=== PATIENT | male | born 1945 | race Caucasian/White ===

== ENCOUNTER 2018-04-05 17:59 | Inpatient (IN) ==
[2018-04-05 19:13] LABS: Basophils % 0.5 % (0.0-0.8); Eosinophils % 11.8 % (0.00-10.9); Hematocrit 40.2 VOL% (42.0-52.0); Immature Granulocytes % 0.3 %; Immature Granulocytes Absolute 0.03 #; Lymphocytes # 1.8 10*3/uL (1.4-4.0); Lymphocytes % 20.7 % (21.2-54.2); Mean Corpuscular HGB Conc 32.3 GM/DL (32-36); Mean Corpuscular Hemoglobin 33 PG (27-34); Mean Corpuscular Volume 103.3 FL (87-102); Mean Platelet Volume 11.1 FL (9.6-12.0); Monocytes % 11.7 % (1.7-12.7); Neutrophils # 4.9 10*3/uL (1.4-7.4); Platelet Count 354 T/CUMM (130-400); Red Blood Count 3.89 MC/CUMM (3.8-5.5); Red Cell Distribution Width 15.1 % (9.3-17.3); White Blood Count 8.8 T/CUMM (4-12)
[2018-04-05 19:34] LABS: Alanine Aminotransferase 16 U/L (16-61); Albumin 3.6 G/DL (3.4-5.0); Alkaline Phosphatase 66 U/L (45-117); Aspartate Amino Transferase 23 U/L (0-37); Bilirubin,Total < 0.39 MG/DL (0.2-1.0); Blood Urea Nitrogen 32 MG/DL (7-18); Glucose 86 MG/DL (74-106); Osmolality,Calculated 278.8 MOS/KG (273-304); Potassium 5.1 MMOL/L (3.5-5.1); Sodium 137 MMOL/L (136-145); Total Protein 7.4 G/DL (6.4-8.3)
[2018-04-05] MEDS ORDERED: ONDANSETRON 4 MG/2 ML VIAL IV STA (20:05)
[2018-04-05] MEDS ORDERED: MORPHINE 4 MG/1 ML VIAL IV STA (20:05)
[2018-04-05] MEDS ORDERED: hydrALAZINE 20 MG/1 ML VIAL IV STA (20:22)
[2018-04-05 20:25] LABS: Eosinophils 16 % (0-10); Lymphocytes 18 % (20-55); Segmented Neutrophils 58 % (50-85); Total Cells Counted 100
[2018-04-05 20:26] LABS: Anisocytosis Slight; Macrocytosis Slight; Spherocytes Few; Tear Drop Cells Slight
[2018-04-05 20:27] LABS: Stomatocytes Few
[2018-04-05 20:28] LABS: Platelet Estimate Normal
[2018-04-05] MEDS ORDERED: MORPHINE 4 MG/1 ML VIAL IV PRN (21:45)
[2018-04-05] MEDS ORDERED: ENOXAPARIN 40 MG/0.4 ML SYRINGE SUBCUT SCH (22:00)
[2018-04-05] MEDS: SODIUM CHLORIDE 0.9% 1,000 ML IV SCH (23:17)
[2018-04-05] MEDS: NIACIN ER 500 MG TABLET PO SCH (23:22)
[2018-04-05] MEDS: ROSUVASTATIN 20 MG TABLET PO SCH (23:23)
[2018-04-05] MEDS: PANTOPRAZOLE 40 MG TABLET PO SCH (23:23)
[2018-04-06 06:46] LABS: Basophils # 0.1 10*3/uL (0.0-0.2); Basophils % 0.6 % (0.0-0.8); Eosinophils % 12.3 % (0.00-10.9); Hemoglobin 11.3 GM/DL (14.0-18.0); Immature Granulocytes % 0.2 %; Immature Granulocytes Absolute 0.02 #; Lymphocytes # 2.1 10*3/uL (1.4-4.0); Lymphocytes % 25.1 % (21.2-54.2); Mean Corpuscular HGB Conc 31.4 GM/DL (32-36); Mean Corpuscular Hemoglobin 33 PG (27-34); Mean Corpuscular Volume 105.3 FL (87-102); Mean Platelet Volume 10.4 FL (9.6-12.0); Monocytes # 0.9 10*3/uL (0.11-0.8); Monocytes % 10.1 % (1.7-12.7); Neutrophils # 4.4 10*3/uL (1.4-7.4); Neutrophils % 51.7 % (38.7-73.9); Platelet Count 309 T/CUMM (130-400); Red Blood Count 3.42 MC/CUMM (3.8-5.5); Red Cell Distribution Width 15.4 % (9.3-17.3); White Blood Count 8.4 T/CUMM (4-12)
[2018-04-06 07:17] LABS: Alanine Aminotransferase 13 U/L (16-61); Alkaline Phosphatase 51 U/L (45-117); Aspartate Amino Transferase 16 U/L (0-37); Bilirubin,Total < 0.39 MG/DL (0.2-1.0); Blood Urea Nitrogen 30 MG/DL (7-18); Calcium 8.7 MG/DL (8.5-10.1); Cholesterol 114 MG/DL (50-200); Glucose 99 MG/DL (74-106); HDL Cholesterol < 10 MG/DL (40-60); Osmolality,Calculated 282.5 MOS/KG (273-304); Potassium 5.6 MMOL/L (3.5-5.1); Sodium 139 MMOL/L (136-145); Total Protein 6.7 G/DL (6.4-8.3); Triglycerides 241 MG/DL (2-150); VLDL CHOLESTEROL 48.2 MG/DL
[2018-04-06] MEDS: GEMFIBROZIL 600 MG TABLET PO SCH ×2 (07:55→10:12)
[2018-04-06] MEDS: SODIUM CHLORIDE 0.9% 1,000 ML IV SCH ×2 (09:07→18:40)
[2018-04-06 10:01] LABS: Eosinophils 12 % (0-10); Lymphocytes 21 % (20-55); Platelet Estimate Normal; Polychromasia Slight; Segmented Neutrophils 60 % (50-85); Total Cells Counted 100
[2018-04-06] MEDS: ISOSORBIDE MONONITRATE 30 MG TABLET PO SCH (10:12)
[2018-04-06] MEDS: ASPIRIN 325 MG TABLET PO SCH (10:12)
[2018-04-06] MEDS: METOPROLOL TARTRATE 50 MG TABLET PO SCH ×2 (10:12→21:08)
[2018-04-06] MEDS: FENOFIBRATE 145 MG TABLET PO SCH (10:12)
[2018-04-06] MEDS: amLODIPine 10 MG TABLET PO SCH (10:12)
[2018-04-06] MEDS: PANTOPRAZOLE 40 MG TABLET PO SCH ×2 (10:55→21:08)
[2018-04-06] MEDS: CYANOCOBALAMIN 1000 MCG/1 ML VIAL SUBCUT SCH (16:00)
[2018-04-06] MEDS: NIACIN ER 500 MG TABLET PO SCH (21:07)
[2018-04-06] MEDS: ROSUVASTATIN 20 MG TABLET PO SCH (21:08)
[2018-04-06] MEDS: ENOXAPARIN 30 MG/0.3 ML SYRINGE SUBCUT SCH (22:24)
[2018-04-07] MEDS: SODIUM CHLORIDE 0.9% 1,000 ML IV SCH ×2 (05:19→21:57)
[2018-04-07] MEDS: ISOSORBIDE MONONITRATE 30 MG TABLET PO SCH (09:42)
[2018-04-07] MEDS: PANTOPRAZOLE 40 MG TABLET PO SCH ×2 (09:42→21:53)
[2018-04-07] MEDS: METOPROLOL TARTRATE 50 MG TABLET PO SCH ×2 (09:42→21:53)
[2018-04-07] MEDS: ASPIRIN 325 MG TABLET PO SCH (09:42)
[2018-04-07] MEDS: FENOFIBRATE 145 MG TABLET PO SCH (09:42)
[2018-04-07] MEDS: amLODIPine 10 MG TABLET PO SCH (09:42)
[2018-04-07] MEDS: CYANOCOBALAMIN 1000 MCG/1 ML VIAL SUBCUT SCH (09:43)
[2018-04-07 09:45] LABS: Basophils # 0.1 10*3/uL (0.0-0.2); Basophils % 0.6 % (0.0-0.8); Eosinophils # 1.2 10*3/uL (0.0-0.87); Eosinophils % 14.3 % (0.00-10.9); Hematocrit 39.1 VOL% (42.0-52.0); Hemoglobin 12.3 GM/DL (14.0-18.0); Immature Granulocytes % 0.2 %; Immature Granulocytes Absolute 0.02 #; Lymphocytes # 2.1 10*3/uL (1.4-4.0); Lymphocytes % 26.3 % (21.2-54.2); Mean Corpuscular HGB Conc 31.5 GM/DL (32-36); Mean Corpuscular Hemoglobin 33 PG (27-34); Mean Platelet Volume 10.7 FL (9.6-12.0); Monocytes # 0.8 10*3/uL (0.11-0.8); Monocytes % 9.3 % (1.7-12.7); Neutrophils % 49.3 % (38.7-73.9); Platelet Count 342 T/CUMM (130-400); Red Blood Count 3.69 MC/CUMM (3.8-5.5); Red Cell Distribution Width 15.3 % (9.3-17.3); White Blood Count 8.1 T/CUMM (4-12)
[2018-04-07 10:21] LABS: Osmolality,Calculated 280.7 MOS/KG (273-304); Potassium 4.6 MMOL/L (3.5-5.1)
[2018-04-07 13:33] LABS: Eosinophils 8 % (0-10); Lymphocytes 24 % (20-55); Platelet Estimate Normal; Polychromasia Slight; Segmented Neutrophils 65 % (50-85); Total Cells Counted 100
[2018-04-07] MEDS ORDERED: BISACODYL 5 MG TABLET PO ONE (18:00)
[2018-04-07] MEDS ORDERED: MAGNESIUM CITRATE 300 ML BOTTLE PO ONE (18:00)
[2018-04-07] MEDS: ROSUVASTATIN 20 MG TABLET PO SCH (21:53)
[2018-04-07] MEDS: NIACIN ER 500 MG TABLET PO SCH (21:53)
[2018-04-07] MEDS: ENOXAPARIN 30 MG/0.3 ML SYRINGE SUBCUT SCH ×2 (21:53→23:15)
[2018-04-08] MEDS: FENOFIBRATE 145 MG TABLET PO SCH (08:52)
[2018-04-08] MEDS: CYANOCOBALAMIN 1000 MCG/1 ML VIAL SUBCUT SCH (08:52)
[2018-04-08] MEDS: ASPIRIN 325 MG TABLET PO SCH (08:52)
[2018-04-08] MEDS: METOPROLOL TARTRATE 50 MG TABLET PO SCH ×2 (08:52→22:33)
[2018-04-08] MEDS: ISOSORBIDE MONONITRATE 30 MG TABLET PO SCH (08:52)
[2018-04-08] MEDS: PANTOPRAZOLE 40 MG TABLET PO SCH ×2 (08:53→22:33)
[2018-04-08] MEDS: amLODIPine 10 MG TABLET PO SCH (08:53)
[2018-04-08 09:00] LABS: Calcium 8.8 MG/DL (8.5-10.1); Osmolality,Calculated 284.3 MOS/KG (273-304); Potassium 4.8 MMOL/L (3.5-5.1)
[2018-04-08] MEDS: SODIUM CHLORIDE 0.9% 1,000 ML IV SCH ×2 (17:30→18:26)
[2018-04-08] MEDS: ROSUVASTATIN 20 MG TABLET PO SCH (22:32)
[2018-04-08] MEDS: NIACIN ER 500 MG TABLET PO SCH (22:32)
[2018-04-08] MEDS: ENOXAPARIN 30 MG/0.3 ML SYRINGE SUBCUT SCH (22:33)
[2018-04-09] MEDS: SODIUM CHLORIDE 0.9% 1,000 ML IV SCH ×4 (02:50→14:58)
[2018-04-09] MEDS: amLODIPine 10 MG TABLET PO SCH (09:22)
[2018-04-09] MEDS: PANTOPRAZOLE 40 MG TABLET PO SCH ×2 (09:22→20:52)
[2018-04-09] MEDS: METOPROLOL TARTRATE 50 MG TABLET PO SCH ×2 (09:22→20:52)
[2018-04-09] MEDS: methylPREDNISolone SOD SUC 40 MG/1 ML VIAL IV SCH (15:21)
[2018-04-09] MEDS: CYANOCOBALAMIN 1000 MCG/1 ML VIAL SUBCUT SCH (15:24)
[2018-04-09] MEDS: FENOFIBRATE 145 MG TABLET PO SCH (15:26)
[2018-04-09] MEDS: ISOSORBIDE MONONITRATE 30 MG TABLET PO SCH (15:26)
[2018-04-09] MEDS: ASPIRIN 325 MG TABLET PO SCH (15:27)
[2018-04-09] MEDS: NIACIN ER 500 MG TABLET PO SCH (20:52)
[2018-04-09] MEDS: ROSUVASTATIN 20 MG TABLET PO SCH (20:53)
[2018-04-09] MEDS: ENOXAPARIN 30 MG/0.3 ML SYRINGE SUBCUT SCH (22:40)
[2018-04-10] MEDS: SODIUM CHLORIDE 0.9% 1,000 ML IV SCH ×3 (06:01→21:26)
[2018-04-10 06:08] LABS: Basophils % 0.2 % (0.0-0.8); Eosinophils % 0.1 % (0.00-10.9); Hematocrit 30.7 VOL% (42.0-52.0); Hemoglobin 9.7 GM/DL (14.0-18.0); Immature Granulocytes % 0.7 %; Immature Granulocytes Absolute 0.06 #; Lymphocytes # 1.1 10*3/uL (1.4-4.0); Lymphocytes % 13.3 % (21.2-54.2); Mean Corpuscular HGB Conc 31.6 GM/DL (32-36); Mean Corpuscular Hemoglobin 34 PG (27-34); Mean Corpuscular Volume 106.6 FL (87-102); Mean Platelet Volume 11.3 FL (9.6-12.0); Monocytes # 0.5 10*3/uL (0.11-0.8); Monocytes % 6.3 % (1.7-12.7); Neutrophils # 6.4 10*3/uL (1.4-7.4); Neutrophils % 79.4 % (38.7-73.9); Platelet Count 288 T/CUMM (130-400); Red Blood Count 2.88 MC/CUMM (3.8-5.5); Red Cell Distribution Width 14.8 % (9.3-17.3)
[2018-04-10 06:18] LABS: Calcium 8.2 MG/DL (8.5-10.1); Osmolality,Calculated 285.4 MOS/KG (273-304)
[2018-04-10] MEDS: ASPIRIN 325 MG TABLET PO SCH (08:24)
[2018-04-10] MEDS: amLODIPine 10 MG TABLET PO SCH (08:24)
[2018-04-10] MEDS: METOPROLOL TARTRATE 50 MG TABLET PO SCH ×2 (08:24→21:27)
[2018-04-10] MEDS: PANTOPRAZOLE 40 MG TABLET PO SCH ×2 (08:24→21:28)
[2018-04-10] MEDS: ISOSORBIDE MONONITRATE 30 MG TABLET PO SCH (08:25)
[2018-04-10] MEDS: CYANOCOBALAMIN 1000 MCG/1 ML VIAL SUBCUT SCH (08:25)
[2018-04-10] MEDS: FENOFIBRATE 145 MG TABLET PO SCH (08:25)
[2018-04-10] MEDS: methylPREDNISolone SOD SUC 40 MG/1 ML VIAL IV SCH (13:28)
[2018-04-10] MEDS ORDERED: DIAZEPAM 5 MG TABLET PO ONE (15:55)
[2018-04-10] MEDS ORDERED: PANTOPRAZOLE 40 MG TABLET PO ONE (15:56)
[2018-04-10] MEDS: ROSUVASTATIN 20 MG TABLET PO SCH (21:27)
[2018-04-10] MEDS: NIACIN ER 500 MG TABLET PO SCH (21:27)
[2018-04-11] MEDS: ENOXAPARIN 30 MG/0.3 ML SYRINGE SUBCUT SCH (01:54)
[2018-04-11] MEDS ORDERED: PHENYLEPHRINE DRIP 20 MG/250 ML PREMIX IV ONE (07:23)
[2018-04-11] MEDS ORDERED: NITROGLYCERIN DRIP 50 MG/250 ML BOTTLE IV ONE (07:23)
[2018-04-11] MEDS ORDERED: SODIUM CHLORIDE 0.9% 1,000 ML IV ONE (07:23)
[2018-04-11] MEDS ORDERED: HEPARIN/NACL 0.9% 2 UNITS/ML 500 ML IV ONE (07:23)
[2018-04-11] MEDS ORDERED: DIAZEPAM 5 MG TABLET PO ONE (08:00)
[2018-04-11] MEDS ORDERED: HEPARIN 5,000 UNIT/1 ML VIAL ONE (08:03)
[2018-04-11] MEDS: ASPIRIN 325 MG TABLET PO SCH (08:04)
[2018-04-11] MEDS ORDERED: LIDOCAINE 1% 20 ML VIAL ONE (08:04)
[2018-04-11] MEDS: METOPROLOL TARTRATE 50 MG TABLET PO SCH ×2 (08:05→20:31)
[2018-04-11] MEDS: ISOSORBIDE MONONITRATE 30 MG TABLET PO SCH (08:05)
[2018-04-11] MEDS: amLODIPine 10 MG TABLET PO SCH (08:05)
[2018-04-11] MEDS: CYANOCOBALAMIN 1000 MCG/1 ML VIAL SUBCUT SCH (08:06)
[2018-04-11] MEDS: PANTOPRAZOLE 40 MG TABLET PO SCH ×2 (08:06→20:31)
[2018-04-11] MEDS: FENOFIBRATE 145 MG TABLET PO SCH (08:06)
[2018-04-11] MEDS ORDERED: ceFAZolin 1,000 MG VIAL ONE (09:21)
[2018-04-11] MEDS ORDERED: ceFAZolin 1,000 MG in SYRINGE 1 EACH IV ONE (09:50)
[2018-04-11] MEDS ORDERED: PROMETHAZINE 25 MG/1 ML VIAL IM PRN (10:31)
[2018-04-11] MEDS ORDERED: HYDROmorphone 2 MG/1 ML VIAL IV PRN ×2 (10:31)
[2018-04-11] MEDS ORDERED: DEXTROSE 50% 25 GM/50 ML VIAL IV PRN (10:31)
[2018-04-11] MEDS ORDERED: NALOXONE 0.4 MG/ML VIAL IV PRN (10:31)
[2018-04-11] MEDS ORDERED: GLUCAGON 1 MG VIAL IM PRN (10:31)
[2018-04-11] MEDS ORDERED: oxyCODONE/ACETAMINOPHEN 5-325 MG TABLET PO PRN ×2 (10:31)
[2018-04-11] MEDS ORDERED: ONDANSETRON 4 MG/2 ML VIAL IV PRN (10:31)
[2018-04-11] MEDS ORDERED: ONDANSETRON 4 MG/2 ML VIAL ONE ×2 (10:43→10:57)
[2018-04-11] MEDS ORDERED: PROPOFOL 200 MG/20 ML VIAL IV ONE (10:56)
[2018-04-11] MEDS ORDERED: LABETALOL 20 MG/4 ML SYRINGE IV ONE (10:57)
[2018-04-11] MEDS ORDERED: PROTAMINE SULFATE 50 MG/5 ML VIAL IV ONE (10:57)
[2018-04-11] MEDS ORDERED: GLYCOPYRROLATE 0.4 MG/2 ML VIAL ONE (10:57)
[2018-04-11] MEDS ORDERED: ROCURONIUM 100 MG/10 ML VIAL IV ONE (10:57)
[2018-04-11] MEDS ORDERED: fentaNYL 100 MCG/2 ML VIAL ONE (10:57)
[2018-04-11] MEDS ORDERED: hydrALAZINE 20 MG/1 ML VIAL ONE (10:57)
[2018-04-11] MEDS ORDERED: NEOSTIGMINE 10 MG/10 ML VIAL ONE (10:57)
[2018-04-11] MEDS ORDERED: HEPARIN 10,000 UNIT/10 ML VIAL ONE (10:58)
[2018-04-11] MEDS ORDERED: NITROPRUSSIDE 100 MG in DEXTROSE 5% 250 ML IV SCH (11:00)
[2018-04-11] MEDS: HYDROmorphone 2 MG/1 ML VIAL IV PRN ×2 (11:10→11:22)
[2018-04-11] MEDS: LACTATED RINGERS 1,000 ML IV SCH ×2 (11:10→20:31)
[2018-04-11] MEDS: SODIUM CHLORIDE 0.9% 1,000 ML IV SCH ×3 (12:00→16:57)
[2018-04-11] MEDS: ASPIRIN EC 81 MG TABLET PO SCH (12:20)
[2018-04-11] MEDS: methylPREDNISolone SOD SUC 40 MG/1 ML VIAL IV SCH (12:47)
[2018-04-11] MEDS: PHENYLEPHRINE DRIP 40 MG/250 ML PREMIX IV SCH (13:25)
[2018-04-11] MEDS: NIACIN ER 500 MG TABLET PO SCH (20:30)
[2018-04-11] MEDS: ROSUVASTATIN 20 MG TABLET PO SCH (20:30)
[2018-04-12] MEDS: LACTATED RINGERS 1,000 ML IV SCH (06:34)
[2018-04-12] MEDS ORDERED: DEXTROSE 50% 25 GM/50 ML SYRINGE IV PRN (08:36)
[2018-04-12] MEDS ORDERED: GLUCAGON 1 MG VIAL IM PRN (08:36)
[2018-04-12] MEDS ORDERED: CLOPIDOGREL 75 MG TABLET PO SCH (09:00)
[2018-04-12] MEDS: METOPROLOL TARTRATE 50 MG TABLET PO SCH (09:04)
[2018-04-12] MEDS: amLODIPine 10 MG TABLET PO SCH (09:04)
[2018-04-12] MEDS: ASPIRIN EC 81 MG TABLET PO SCH (09:04)
[2018-04-12] MEDS: FENOFIBRATE 145 MG TABLET PO SCH (09:04)
[2018-04-12] MEDS: PANTOPRAZOLE 40 MG TABLET PO SCH (09:04)
[2018-04-12] MEDS: ISOSORBIDE MONONITRATE 30 MG TABLET PO SCH (09:04)
[2018-04-12] MEDS: PHENYLEPHRINE DRIP 40 MG/250 ML PREMIX IV SCH (10:50)
[2018-04-12 11:24] VITALS: BP 129/64
[2018-04-12] MEDS: methylPREDNISolone SOD SUC 40 MG/1 ML VIAL IV SCH (12:25)
== END 2018-04-12 14:55 | disposition home or self-care (01) | DRG 983 ==
LOC: N.EDINP 17:59 → N.ED 17:59 → N.3E 22:28 → SUATTDRO 04-08 16:29 → N.ICU 04-11 11:38
PROVIDERS: ADMIT Internal Medicine; ATTEND Internal Medicine

== ENCOUNTER 2018-05-20 11:46 | Observation (INO) ==
[2018-05-20 14:54] LABS: Basophils % 0.4 % (0.0-0.8); Eosinophils # 0.5 10*3/uL (0.0-0.87); Eosinophils % 6.7 % (0.00-10.9); Hematocrit 42.8 VOL% (42.0-52.0); Hemoglobin 13.4 GM/DL (14.0-18.0); Immature Granulocytes % 0.4 %; Immature Granulocytes Absolute 0.03 #; Lymphocytes # 1.2 10*3/uL (1.4-4.0); Lymphocytes % 16.1 % (21.2-54.2); Mean Corpuscular HGB Conc 31.3 GM/DL (32-36); Mean Corpuscular Hemoglobin 32 PG (27-34); Mean Corpuscular Volume 101.9 FL (87-102); Mean Platelet Volume 9.2 FL (9.6-12.0); Monocytes # 0.8 10*3/uL (0.11-0.8); Monocytes % 10.5 % (1.7-12.7); Neutrophils # 4.8 10*3/uL (1.4-7.4); Neutrophils % 65.9 % (38.7-73.9); Platelet Count 306 T/CUMM (130-400); Red Cell Distribution Width 15.5 % (9.3-17.3); White Blood Count 7.3 T/CUMM (4-12)
[2018-05-20] MEDS ORDERED: SODIUM CHLORIDE 0.9% 1,000 ML IV STA (15:08)
[2018-05-20 15:12] LABS: Albumin 2.8 G/DL (3.4-5.0); Bilirubin,Total 0.4 MG/DL (0.2-1.0); Calcium 8.8 MG/DL (8.5-10.1); Osmolality,Calculated 269.4 MOS/KG (273-304); Potassium 3.7 MMOL/L (3.5-5.1); Total Protein 7.2 G/DL (6.4-8.3)
[2018-05-20 16:48] LABS: Apearance,Urine CLEAR (Clear); Bilirubin,Urine Negative (Negative); Blood, Urine Negative (Negative); Glucose,Urine (UA) Negative (Negative); Ketones,Urine Negative (Negative); Mucus,Urine Occasional /LPF (Occasional); Nitrite,Urine Negative (Negative); Protein,Urine 100 MG/DL; RBC,Urine 2 /HPF (0-4); Urine Color Yellow (Yellow); Urine Urobilinogen < 2.0 EU/DL (0.2-1.0); WBC,Urine 1 /HPF (0-6)
[2018-05-20] MEDS ORDERED: ONDANSETRON 4 MG/2 ML VIAL IV PRN (17:44)
[2018-05-20] MEDS ORDERED: NITROGLYCERIN SL 0.4 MG TABLET SL PRN (17:46)
[2018-05-20] MEDS ORDERED: CLOPIDOGREL 75 MG TABLET PO STA (17:47)
[2018-05-20] MEDS ORDERED: metroNIDAZOLE 500 MG/100 ML PREMIX IV ONE (18:56)
[2018-05-20] MEDS: metroNIDAZOLE INJ 500 MG in PREMIX 1 EACH IV SCH (19:15)
[2018-05-20] MEDS: SODIUM CHLORIDE 0.9% 1,000 ML IV SCH ×2 (19:15→23:23)
[2018-05-20] MEDS: METOPROLOL TARTRATE 50 MG TABLET PO SCH (22:15)
[2018-05-20] MEDS: ROSUVASTATIN 20 MG TABLET PO SCH (22:20)
[2018-05-20] MEDS: ENOXAPARIN 40 MG/0.4 ML SYRINGE SUBCUT SCH (22:23)
[2018-05-21] MEDS: metroNIDAZOLE INJ 500 MG in PREMIX 1 EACH IV SCH (02:19)
[2018-05-21 05:40] LABS: Basophils # 0.1 10*3/uL (0.0-0.2); Basophils % 0.7 % (0.0-0.8); Eosinophils # 0.7 10*3/uL (0.0-0.87); Eosinophils % 9.9 % (0.00-10.9); Hematocrit 27.7 VOL% (42.0-52.0); Immature Granulocytes % 0.4 %; Immature Granulocytes Absolute 0.03 #; Lymphocytes # 1.7 10*3/uL (1.4-4.0); Lymphocytes % 22.5 % (21.2-54.2); Mean Corpuscular HGB Conc 32.5 GM/DL (32-36); Mean Corpuscular Hemoglobin 33 PG (27-34); Mean Corpuscular Volume 100.4 FL (87-102); Mean Platelet Volume 9.9 FL (9.6-12.0); Monocytes % 13.5 % (1.7-12.7); Neutrophils # 3.9 10*3/uL (1.4-7.4); Platelet Count 332 T/CUMM (130-400); Red Cell Distribution Width 15.3 % (9.3-17.3); White Blood Count 7.3 T/CUMM (4-12)
[2018-05-21 05:45] LABS: Calcium 7.9 MG/DL (8.5-10.1); Osmolality,Calculated 275.7 MOS/KG (273-304); Potassium 3.8 MMOL/L (3.5-5.1)
[2018-05-21 05:48] LABS: Red Blood Count 2.76 MC/CUMM (3.8-5.5)
[2018-05-21] MEDS: SODIUM CHLORIDE 0.9% 1,000 ML IV SCH ×3 (08:12→18:32)
[2018-05-21] MEDS: VANCOMYCIN 50 MG/ML 60 ML/BOTTLE PO SCH ×3 (08:54→18:21)
[2018-05-21] MEDS: PANTOPRAZOLE 40 MG TABLET PO SCH (08:55)
[2018-05-21] MEDS: METOPROLOL TARTRATE 50 MG TABLET PO SCH ×2 (08:55→21:54)
[2018-05-21] MEDS: CLOPIDOGREL 75 MG TABLET PO SCH (08:55)
[2018-05-21] MEDS: ASPIRIN EC 81 MG TABLET PO SCH (08:55)
[2018-05-21] MEDS: ISOSORBIDE MONONITRATE 30 MG TABLET PO SCH (08:55)
[2018-05-21] MEDS: NICOTINE 21 MG/24 HR PATCH TRANSDERM SCH (09:02)
[2018-05-21] MEDS: ENOXAPARIN 40 MG/0.4 ML SYRINGE SUBCUT SCH (21:52)
[2018-05-21] MEDS: ROSUVASTATIN 20 MG TABLET PO SCH (21:54)
[2018-05-22] MEDS: VANCOMYCIN 50 MG/ML 60 ML/BOTTLE PO SCH ×3 (00:50→12:18)
[2018-05-22] MEDS: SODIUM CHLORIDE 0.9% 1,000 ML IV SCH ×2 (01:00→12:20)
[2018-05-22 04:45] LABS: Basophils % 0.5 % (0.0-0.8); Eosinophils # 0.8 10*3/uL (0.0-0.87); Eosinophils % 11.3 % (0.00-10.9); Hematocrit 27.6 VOL% (42.0-52.0); Hemoglobin 8.6 GM/DL (14.0-18.0); Immature Granulocytes % 0.3 %; Immature Granulocytes Absolute 0.02 #; Lymphocytes # 1.5 10*3/uL (1.4-4.0); Lymphocytes % 21.9 % (21.2-54.2); Mean Corpuscular HGB Conc 31.2 GM/DL (32-36); Mean Corpuscular Hemoglobin 32 PG (27-34); Mean Platelet Volume 9.6 FL (9.6-12.0); Monocytes # 0.9 10*3/uL (0.11-0.8); Neutrophils # 3.5 10*3/uL (1.4-7.4); Platelet Count 314 T/CUMM (130-400); Red Blood Count 2.68 MC/CUMM (3.8-5.5); Red Cell Distribution Width 15.6 % (9.3-17.3); White Blood Count 6.6 T/CUMM (4-12)
[2018-05-22 04:56] LABS: Calcium 7.8 MG/DL (8.5-10.1); Potassium 4.1 MMOL/L (3.5-5.1)
[2018-05-22 05:21] LABS: Eosinophils 11 % (0-10); Hypochromasia 1+; Lymphocytes 20 % (20-55); Ovalocytes Slight; Platelet Estimate Adequate; Segmented Neutrophils 58 % (50-85); Total Cells Counted 100
[2018-05-22] MEDS: PANTOPRAZOLE 40 MG TABLET PO SCH (10:15)
[2018-05-22] MEDS: ASPIRIN EC 81 MG TABLET PO SCH (10:15)
[2018-05-22] MEDS: CLOPIDOGREL 75 MG TABLET PO SCH (10:15)
[2018-05-22] MEDS: NICOTINE 21 MG/24 HR PATCH TRANSDERM SCH (10:15)
[2018-05-22] MEDS: METOPROLOL TARTRATE 50 MG TABLET PO SCH (10:15)
[2018-05-22] MEDS: ISOSORBIDE MONONITRATE 30 MG TABLET PO SCH (10:15)
[2018-05-22 12:03] VITALS: BP 131/69
== END 2018-05-22 13:55 | disposition home or self-care (01) ==
LOC: N.EDINP 11:46 → N.ED 11:46 → N.5E 19:34 → SUATTDRO 05-21 10:21
PROVIDERS: ADMIT Internal Medicine; ATTEND Hospitalist

== ENCOUNTER 2018-07-08 05:40 | Inpatient (IN) ==
[2018-07-03 09:47] LABS: Basophils % 0.4 % (0.0-0.8); Eosinophils % 14.2 % (0.00-10.9); Hematocrit 35.9 VOL% (42.0-52.0); Immature Granulocytes % 0.1 %; Immature Granulocytes Absolute 0.01 #; Lymphocytes # 1.4 10*3/uL (1.4-4.0); Mean Corpuscular HGB Conc 30.6 GM/DL (32-36); Mean Corpuscular Volume 108.1 FL (87-102); Mean Platelet Volume 9.9 FL (9.6-12.0); Monocytes % 10.1 % (1.7-12.7); Neutrophils % 55.2 % (38.7-73.9); Platelet Count 330 T/CUMM (130-400); Red Blood Count 3.32 MC/CUMM (3.8-5.5); Red Cell Distribution Width 17.2 % (9.3-17.3); White Blood Count 7.1 T/CUMM (4-12)
[2018-07-03 09:55] LABS: INR 1.1
[2018-07-03 10:10] LABS: Eosinophils 16 % (0-10); Lymphocytes 19 % (20-55); Segmented Neutrophils 55 % (50-85); Total Cells Counted 100
[2018-07-03 10:11] LABS: Anisocytosis 1+; Hypochromasia 1+; Macrocytosis 1+
[2018-07-03 10:13] LABS: Atypical Lymphocytes Few; Osmolality,Calculated 290.4 MOS/KG (273-304)
[2018-07-08] MEDS ORDERED: VANCOMYCIN 1,000 MG VIAL ONE ×2 (05:49→06:19)
[2018-07-08] MEDS ORDERED: HEPARIN 5,000 UNIT/1 ML VIAL ONE (06:19)
[2018-07-08] MEDS ORDERED: LIDOCAINE 1% 20 ML VIAL ONE (06:19)
[2018-07-08] MEDS ORDERED: LIDOCAINE 2% TOP JELLY 20 ML VIAL INTRAURETH ONE (06:19)
[2018-07-08] MEDS ORDERED: THROMBIN TOPICAL (RECOMBINANT) 5,000 UNIT VIAL TOP ONE (06:19)
[2018-07-08] MEDS ORDERED: TISSUE ADHESIVE 1 EACH APPLICATOR TOP ONE (06:19)
[2018-07-08] MEDS ORDERED: LACTATED RINGERS 1,000 ML IV SCH (07:00)
[2018-07-08] MEDS ORDERED: HEPARIN/NACL 0.9% 2 UNITS/ML 3,000 ML IV ONE (07:17)
[2018-07-08 07:37] LABS: Basophils % 0.5 % (0.0-0.8); Eosinophils # 1.2 10*3/uL (0.0-0.87); Eosinophils % 16.3 % (0.00-10.9); Hematocrit 34.3 VOL% (42.0-52.0); Hemoglobin 10.4 GM/DL (14.0-18.0); Immature Granulocytes % 0.4 %; Immature Granulocytes Absolute 0.03 #; Lymphocytes # 1.5 10*3/uL (1.4-4.0); Lymphocytes % 20.7 % (21.2-54.2); Mean Corpuscular HGB Conc 30.3 GM/DL (32-36); Mean Platelet Volume 9.7 FL (9.6-12.0); Monocytes % 9.3 % (1.7-12.7); Neutrophils % 52.8 % (38.7-73.9); Platelet Count 299 T/CUMM (130-400); Red Blood Count 3.09 MC/CUMM (3.8-5.5); Red Cell Distribution Width 17.4 % (9.3-17.3); White Blood Count 7.3 T/CUMM (4-12)
[2018-07-08 08:15] LABS: Eosinophils 17 % (0-10); Hypochromasia 1+; Lymphocytes 29 % (20-55); Macrocytosis Slight; Platelet Estimate Adequate; Segmented Neutrophils 47 % (50-85); Total Cells Counted 100
[2018-07-08] MEDS ORDERED: NITROGLYCERIN SL 0.4 MG TABLET SL PRN (08:45)
[2018-07-08] MEDS ORDERED: ASPIRIN EC 81 MG TABLET PO SCH (09:00)
[2018-07-08] MEDS ORDERED: SODIUM CHLORIDE 0.45% 1,000 ML IV SCH (09:00)
[2018-07-08] MEDS ORDERED: fentaNYL 100 MCG/2 ML VIAL ONE (09:06)
[2018-07-08] MEDS ORDERED: MIDAZOLAM 2 MG/2 ML VIAL ONE (09:06)
[2018-07-08 09:24] LABS: Calcium 8.9 MG/DL (8.5-10.1); Osmolality,Calculated 283.8 MOS/KG (273-304)
[2018-07-08] MEDS: amLODIPine 10 MG TABLET PO SCH (09:49)
[2018-07-08] MEDS: ISOSORBIDE MONONITRATE 30 MG TABLET PO SCH (09:49)
[2018-07-08] MEDS: METOPROLOL TARTRATE 50 MG TABLET PO SCH ×2 (09:49→21:17)
[2018-07-08] MEDS: ASPIRIN EC 81 MG TABLET PO SCH ×2 (09:49→10:07)
[2018-07-08 09:50] LABS: INR 1.1; PT Patient Result 12.2 SECS; Partial Thromboplastin Time 27.5 SECS (0-40)
[2018-07-08] MEDS: NIACIN ER 500 MG TABLET PO SCH ×3 (10:04→21:16)
[2018-07-08] MEDS: FENOFIBRATE 145 MG TABLET PO SCH (10:04)
[2018-07-08] MEDS: SODIUM CHLORIDE 0.45% 1,000 ML IV SCH ×2 (10:07→23:14)
[2018-07-08] MEDS ORDERED: VANCOMYCIN INJ 1,000 MG in SODIUM CHLORIDE 0.9% 250 ML IV ONE (10:30)
[2018-07-08] MEDS: CLINDAMYCIN 300 MG CAPSULE PO SCH ×2 (13:24→21:17)
[2018-07-08] MEDS ORDERED: SIMETHICONE CHEW 125 MG TABLET PO PRN (14:09)
[2018-07-08] MEDS: SODIUM BICARB INJ 50 MEQ in SODIUM CHLORIDE 0.45% 1,000 ML IV SCH (15:24)
[2018-07-08] MEDS ORDERED: ACETYLCYSTEINE 600 MG CAPSULE PO SCH (16:00)
[2018-07-08] MEDS: GEMFIBROZIL 600 MG TABLET PO SCH (16:28)
[2018-07-08] MEDS: ROSUVASTATIN 20 MG TABLET PO SCH (21:16)
[2018-07-09] MEDS: SODIUM BICARB INJ 50 MEQ in SODIUM CHLORIDE 0.45% 1,000 ML IV SCH ×3 (00:04→21:10)
[2018-07-09] MEDS: CLINDAMYCIN 300 MG CAPSULE PO SCH ×3 (05:27→21:11)
[2018-07-09] MEDS ORDERED: ceFAZolin 1,000 MG in SYRINGE 1 EACH IV ONE (06:00)
[2018-07-09 06:40] LABS: Calcium 8.6 MG/DL (8.5-10.1); Osmolality,Calculated 288.3 MOS/KG (273-304)
[2018-07-09] MEDS: GEMFIBROZIL 600 MG TABLET PO SCH ×2 (07:11→16:41)
[2018-07-09] MEDS: amLODIPine 10 MG TABLET PO SCH (08:17)
[2018-07-09] MEDS: METOPROLOL TARTRATE 50 MG TABLET PO SCH ×2 (08:17→20:17)
[2018-07-09] MEDS: ISOSORBIDE MONONITRATE 30 MG TABLET PO SCH (08:17)
[2018-07-09] MEDS: ASPIRIN EC 81 MG TABLET PO SCH (08:18)
[2018-07-09] MEDS: NIACIN ER 500 MG TABLET PO SCH ×3 (08:18→20:17)
[2018-07-09] MEDS: FENOFIBRATE 145 MG TABLET PO SCH (08:19)
[2018-07-09] MEDS ORDERED: HEPARIN/NACL 0.9% 2 UNITS/ML 1,000 ML IV ONE (10:49)
[2018-07-09] MEDS: SODIUM CHLORIDE 0.45% 1,000 ML IV SCH (12:03)
[2018-07-09 12:34] LABS: Apearance,Urine CLEAR (Clear); Bilirubin,Urine Negative (Negative); Blood, Urine Moderate mg/dL (Negative); Glucose,Urine (UA) Negative (Negative); Ketones,Urine Negative (Negative); Nitrite,Urine Negative (Negative); Protein,Urine 100 MG/DL; Urine Color Straw (Yellow); Urine Specific Gravity 1.009 (1.001-1.035); Urine Urobilinogen < 2.0 EU/DL (0.2-1.0)
[2018-07-09 12:45] LABS: RBC,Urine Occasional /HPF (0-4); WBC,Urine Occasional /HPF (0-6)
[2018-07-09 12:46] LABS: Bacteria,Urine Few /HPF (Few); Mucus,Urine Few /LPF (Occasional); Squamous Epithelial Cell,Urine Few /HPF (0-10)
[2018-07-09] MEDS ORDERED: HYDROmorphone 2 MG/1 ML VIAL IV PRN (13:03)
[2018-07-09] MEDS ORDERED: ONDANSETRON 4 MG/2 ML VIAL IV PRN (13:03)
[2018-07-09] MEDS ORDERED: PROPOFOL 200 MG/20 ML VIAL IV ONE (13:45)
[2018-07-09] MEDS ORDERED: ONDANSETRON 4 MG/2 ML VIAL ONE (13:46)
[2018-07-09] MEDS ORDERED: SEVOFLURANE 1 UNIT/15 MINUTE INH ONE (13:46)
[2018-07-09] MEDS ORDERED: fentaNYL 100 MCG/2 ML VIAL ONE (13:46)
[2018-07-09] MEDS ORDERED: GLYCOPYRROLATE 0.4 MG/2 ML VIAL ONE (13:47)
[2018-07-09] MEDS ORDERED: ACETAMINOPHEN 1,000 MG/100 ML VIAL IV ONE (13:47)
[2018-07-09] MEDS ORDERED: PHENYLEPHRINE 10 MG/1 ML VIAL IV ONE (13:47)
[2018-07-09] MEDS ORDERED: ETOMIDATE 40 MG/20 ML VIAL IV ONE (13:47)
[2018-07-09] MEDS ORDERED: LABETALOL 100 MG/20 ML VIAL IV ONE (13:47)
[2018-07-09] MEDS ORDERED: SODIUM CHLORIDE 0.9% 250 ML IV ONE (13:48)
[2018-07-09] MEDS ORDERED: SODIUM CHLORIDE 0.9% 2,000 ML IV ONE (13:48)
[2018-07-09] MEDS ORDERED: ROCURONIUM 100 MG/10 ML VIAL IV ONE (13:48)
[2018-07-09] MEDS ORDERED: NEOSTIGMINE 10 MG/10 ML VIAL ONE (13:48)
[2018-07-09 14:07] LABS: Hematocrit 28.2 VOL% (42.0-52.0); Hemoglobin 8.7 GM/DL (14.0-18.0)
[2018-07-09 14:50] LABS: Calcium 7.8 MG/DL (8.5-10.1); Osmolality,Calculated 287.4 MOS/KG (273-304)
[2018-07-09] MEDS: ROSUVASTATIN 20 MG TABLET PO SCH (20:17)
[2018-07-10 04:49] LABS: Hematocrit 27.7 VOL% (42.0-52.0); Hemoglobin 8.7 GM/DL (14.0-18.0)
[2018-07-10 05:05] LABS: Calcium 8.3 MG/DL (8.5-10.1); Osmolality,Calculated 285.7 MOS/KG (273-304)
[2018-07-10] MEDS: CLINDAMYCIN 300 MG CAPSULE PO SCH ×3 (05:15→21:14)
[2018-07-10] MEDS: ASPIRIN EC 81 MG TABLET PO SCH (09:45)
[2018-07-10] MEDS: GEMFIBROZIL 600 MG TABLET PO SCH ×2 (09:45→16:27)
[2018-07-10] MEDS: amLODIPine 10 MG TABLET PO SCH (09:46)
[2018-07-10] MEDS: ISOSORBIDE MONONITRATE 30 MG TABLET PO SCH (09:46)
[2018-07-10] MEDS: FENOFIBRATE 145 MG TABLET PO SCH (09:46)
[2018-07-10] MEDS: NIACIN ER 500 MG TABLET PO SCH ×3 (09:46→21:14)
[2018-07-10] MEDS: METOPROLOL TARTRATE 50 MG TABLET PO SCH ×2 (09:46→21:14)
[2018-07-10] MEDS: SODIUM BICARB INJ 50 MEQ in SODIUM CHLORIDE 0.45% 1,000 ML IV SCH ×2 (13:35→18:30)
[2018-07-10] MEDS: ROSUVASTATIN 20 MG TABLET PO SCH (21:14)
[2018-07-11] MEDS: CLINDAMYCIN 300 MG CAPSULE PO SCH (05:58)
[2018-07-11 06:04] LABS: Calcium 8.4 MG/DL (8.5-10.1); Osmolality,Calculated 288.3 MOS/KG (273-304)
[2018-07-11] MEDS: ISOSORBIDE MONONITRATE 30 MG TABLET PO SCH (09:08)
[2018-07-11] MEDS: ASPIRIN EC 81 MG TABLET PO SCH (09:08)
[2018-07-11] MEDS: METOPROLOL TARTRATE 50 MG TABLET PO SCH (09:08)
[2018-07-11] MEDS: GEMFIBROZIL 600 MG TABLET PO SCH (09:08)
[2018-07-11] MEDS: amLODIPine 10 MG TABLET PO SCH (09:09)
[2018-07-11] MEDS: NIACIN ER 500 MG TABLET PO SCH (09:09)
[2018-07-11] MEDS: FENOFIBRATE 145 MG TABLET PO SCH (09:09)
[2018-07-11 12:49] VITALS: BP 148/82
== END 2018-07-11 12:15 | disposition home or self-care (01) | DRG 269 ==
LOC: N.SDSINP 05:40 → N.3E 09:17
PROVIDERS: ADMIT Surgery; ATTEND Surgery
PROC: IRERAAA (2018-07-08 08:16)